=== PATIENT | female | born 1930 | race Caucasian/White ===

== ENCOUNTER 2017-08-06 15:04 | Inpatient (IN) | payer MEDICARE, OTHER ==
[~2017-08-06] VITALS: Ht 157.5 cm; Wt 82.0 kg
[~2017-08-06 15:04] MED LIST: ACET650T2 PO; ATEN-169 PO; ATOR20TA PO; FURO40TA4 PO; HYDR-3965 PO; LOSA50TA37 PO; MULT-1074 PO; PARO10TA PO; POTA10TA19 PO; VITA1TAB PO; VITC500T PO; WARF1TAB PO
[2017-08-06 15:47] LABS: BASOPHILS # (AUTO) 0.1 X10'3 (0-0.2); BASOPHILS % (AUTO) 0.7 % (0-1); EOSINOPHILS # (AUTO) 0.2 X10'3 (0-0.9); EOSINOPHILS % (AUTO) 1.1 % (0-6); HEMOGLOBIN 13.4 g/dl (12.0-16.0); LYMPHOCYTES # (AUTO) 1.4 X10'3 (1.1-4.8); LYMPHOCYTES % (AUTO) 8.9 % (21-51); MEAN CORPUSCULAR HEMOGLOBIN 30.8 PG (27.0-31.0); MEAN CORPUSCULAR HGB CONC 33.4 % (33.0-36.5); MEAN CORPUSCULAR VOLUME 92.3 FL (78-98); MEAN PLATELET VOLUME 7.3 FL (7.4-10.4); MONOCYTES # (AUTO) 1.3 X10'3 (0-0.9); MONOCYTES % (AUTO) 8.5 % (2-12); NEUTROPHILS # (AUTO) 12.6 X10'3 (1.8-7.7); NEUTROPHILS % (AUTO) 80.8 % (42-75); PLATELET COUNT 299 X10'3 (140-440); RED BLOOD COUNT 4.33 X10'6 (4.20-5.60); WHITE BLOOD COUNT 15.6 X10'3 (4.5-11.0)
[2017-08-06 15:57] LABS: INR 2.4 INR; PARTIAL THROMBOPLASTIN TIME 49 SECONDS (22-32)
[2017-08-06 16:02] LABS: ALANINE AMINOTRANSFERASE 24 U/L (12-78); ALBUMIN 3.8 G/DL (3.4-5.0); ALKALINE PHOSPHATASE 65 IU/L (46-116); ANION GAP 10 (8-16); ASPARTATE AMINO TRANSFERASE 24 U/L (10-37); BILIRUBIN,TOTAL 1.3 MG/DL (0.1-1.0); BLOOD UREA NITROGEN 17 MG/DL (7-18); BUN/CREATININE RATIO 13.4 (6.6-38.0); CALCIUM 9.8 MG/DL (8.5-10.1); CHLORIDE 99 MMOL/L (99-107); CREATININE 1.27 MG/DL (0.40-0.90); GLUCOSE 120 MG/DL (70-104); MAGNESIUM 1.8 MG/DL (1.5-2.4); SODIUM 138 MMOL/L (135-145); TOTAL CARBON DIOXIDE 29.5 MMOL/L (24-32); TOTAL PROTEIN 7.6 G/DL (6.4-8.2); eGFR 40 ML/MIN
[2017-08-06] MEDS ORDERED: piperacillin/tazo 3.375gm/50ml 50 ML IV ONE (16:25)
[2017-08-06] MEDS ORDERED: vancomycin/NS 1 GM ADD-VANTAGE 250 ML IV ONE (16:25)
[2017-08-06] MEDS ORDERED: LOSA100T3 PO (16:46)
[2017-08-06] MEDS ORDERED: HYDROcodone/acetaminophen 5mg/325mg tablet PO PRN (16:55)
[2017-08-06] MEDS ORDERED: acetaminophen 325mg tablet PO PRN ×2 (16:55)
[2017-08-06] MEDS ORDERED: magnesium Cl slow-release 64mg tablet PO PRN (16:55)
[2017-08-06] MEDS ORDERED: potassium Cl 20 mEq SR tablet PO PRN ×2 (16:55)
[2017-08-06] MEDS ORDERED: magnesium 4gm in 100ml NS 100 ML IV PRN (16:55)
[2017-08-06] MEDS ORDERED: magnesium hydroxide 30ml (MOM) UD suspension PO PRN (16:55)
[2017-08-06] MEDS ORDERED: mag hydrox/Alum hydrox/simeth 30ml oral suspension PO PRN (16:55)
[2017-08-06] MEDS ORDERED: potassium Cl 40MEQ/NS 500ml 500 ML IV PRN ×2 (16:55)
[2017-08-06] MEDS ORDERED: ondansetron/PF 4mg/2ml inj IV PRN (16:55)
[2017-08-06] MEDS ORDERED: magnesium 2GM in 50ml NS 50 ML IV PRN (16:55)
[2017-08-06] MEDS: HYDROcodone/acetaminophen 10/325mg tab PO PRN (17:15)
[2017-08-06 17:34] LABS: CLARITY,URINE CLEAR (Clear); COLOR,URINE YELLOW (Yellow); GLUCOSE, URINE NEGATIVE (Neg); KETONES,URINE TRACE mg/dl (Neg); LEUKOCYTE ESTERASE ,URINE TRACE (Neg); NITRITES, URINE NEGATIVE (Neg); OCCULT BLOOD,URINE NEGATIVE (Neg); PH,URINE 5.5 (4.8-8.0); PROTEIN,URINE NEGATIVE (Neg); UROBILINOGEN,URINE 0.2 E.U/dL (0.2-1.0)
[2017-08-06 17:39] LABS: UA COLLECTION TYPE CLN CATCH MIDSTREAM
[2017-08-06 17:44] LABS: BACTERIA,URINE 1+ /HPF (Neg); RBC,URINE NONE SEEN /HPF (0-2); SQUAMOUS EPITHELIAL CELL,UR MODERATE /LPF (FEW); WBC,URINE 0-4 /HPF (0-4)
[2017-08-06] MEDS: normal saline 1000ml 1,000 ML IV SCH (17:50)
[2017-08-06] MEDS: vancomycin inj 1,250 MG in normal saline 250ml IV soln 250 ML IV SCH (17:50)
[2017-08-06] MEDS ORDERED: COU1T PO (18:02)
[2017-08-06 19:20] VITALS: BP 142/68
[2017-08-06] MEDS ORDERED: heparin, porcine 5000 units/ml vial SQ SCH (20:00)
[2017-08-06] MEDS: docusate sod 100mg capsule PO SCH (20:35)
[2017-08-06] MEDS: warfarin 3mg tablet PO SCH (20:36)
[2017-08-06] MEDS: atorvastatin 20mg tablet PO SCH (20:36)
[2017-08-06] MEDS ORDERED: temazepam 15mg capsule PO PRN (21:00)
[2017-08-06] MEDS ORDERED: warfarin 1mg tablet PO SCH (21:00)
[2017-08-07] VITALS: BP 132/58
[2017-08-07 06:01] LABS: BASOPHILS % (AUTO) 0.2 % (0-1); EOSINOPHILS # (AUTO) 0.4 X10'3 (0-0.9); EOSINOPHILS % (AUTO) 2.6 % (0-6); HEMATOCRIT 34.3 % (35.0-45.0); HEMOGLOBIN 11.7 g/dl (12.0-16.0); LYMPHOCYTES # (AUTO) 1.3 X10'3 (1.1-4.8); LYMPHOCYTES % (AUTO) 9.2 % (21-51); MEAN CORPUSCULAR HEMOGLOBIN 31.1 PG (27.0-31.0); MEAN CORPUSCULAR HGB CONC 34.1 % (33.0-36.5); MEAN CORPUSCULAR VOLUME 91.2 FL (78-98); MEAN PLATELET VOLUME 7.3 FL (7.4-10.4); MONOCYTES # (AUTO) 1.6 X10'3 (0-0.9); MONOCYTES % (AUTO) 11.2 % (2-12); NEUTROPHILS # (AUTO) 11.1 X10'3 (1.8-7.7); NEUTROPHILS % (AUTO) 76.8 % (42-75); PLATELET COUNT 263 X10'3 (140-440); RED BLOOD COUNT 3.76 X10'6 (4.20-5.60); RED CELL DISTRIBUTION WIDTH 17.7 % (11.5-14.5); WHITE BLOOD COUNT 14.5 X10'3 (4.5-11.0)
[2017-08-07 06:07] LABS: INR 2.2 INR; PROTHROMBIN TIME 21.7 SECONDS (9.0-12.0)
[2017-08-07 06:35] LABS: ALANINE AMINOTRANSFERASE 21 U/L (12-78); ALBUMIN 3.1 G/DL (3.4-5.0); ALBUMIN/GLOBULIN RATIO 0.9 (1.1-1.5); ALKALINE PHOSPHATASE 56 IU/L (46-116); ANION GAP 8 (8-16); ASPARTATE AMINO TRANSFERASE 20 U/L (10-37); BLOOD UREA NITROGEN 15 MG/DL (7-18); BUN/CREATININE RATIO 10.9 (6.6-38.0); CALCIUM 9.1 MG/DL (8.5-10.1); CHLORIDE 103 MMOL/L (99-107); CREATININE 1.37 MG/DL (0.40-0.90); GLUCOSE 120 MG/DL (70-104); MAGNESIUM 1.8 MG/DL (1.5-2.4); POTASSIUM 4.4 MMOL/L (3.5-5.1); SODIUM 140 MMOL/L (135-145); TOTAL CARBON DIOXIDE 28.9 MMOL/L (24-32); TOTAL PROTEIN 6.5 G/DL (6.4-8.2); eGFR 37 ML/MIN
[2017-08-07 07:09] VITALS: BP 113/63
[2017-08-07] MEDS: K and/or MAG REPLACEMENT MC SCH (08:00)
[2017-08-07] MEDS ORDERED: warfarin 3mg tablet PO SCH (08:00)
[2017-08-07] MEDS: furosemide 40mg tablet PO SCH (08:00)
[2017-08-07] MEDS: potassium chloride 10mEq ER tablet PO SCH (08:00)
[2017-08-07] MEDS: docusate sod 100mg capsule PO SCH ×2 (08:36→21:19)
[2017-08-07] MEDS: pantoprazole 40mg Tablet.DR PO SCH (08:36)
[2017-08-07] MEDS: losartan 50mg tablet PO SCH (08:37)
[2017-08-07] MEDS: atenolol 50mg tablet PO SCH (08:39)
[2017-08-07] MEDS: PARoxetine 20mg tablet PO SCH (08:39)
[2017-08-07] MEDS: HYDROcodone/acetaminophen 10/325mg tab PO PRN (09:47)
[2017-08-07 11:25] VITALS: BP 96/56
[2017-08-07] MEDS: normal saline 1000ml 1,000 ML IV SCH (12:35)
[2017-08-07] MEDS: vancomycin inj 1,250 MG in normal saline 250ml IV soln 250 ML IV SCH (16:25)
[2017-08-07] MEDS: silver sulfadiazine cream 400gm jar TP SCH (16:25)
[2017-08-07] MEDS ORDERED: vancomycin/NS 1 GM ADD-VANTAGE 250 ML IV SCH (17:00)
[2017-08-07] MEDS: lactobacillus rhamnosus 10,000 MMU CELLS/CAPSULE PO SCH (17:47)
[2017-08-07 19:00] VITALS: BP 126/54
[2017-08-07] MEDS: warfarin 3mg tablet PO SCH (21:18)
[2017-08-07] MEDS: atorvastatin 20mg tablet PO SCH (21:19)
[2017-08-08] VITALS: BP 114/54
[2017-08-08 05:47] LABS: BASOPHILS % (AUTO) 0.3 % (0-1); EOSINOPHILS # (AUTO) 0.5 X10'3 (0-0.9); EOSINOPHILS % (AUTO) 4.3 % (0-6); HEMATOCRIT 32.4 % (35.0-45.0); HEMOGLOBIN 11.2 g/dl (12.0-16.0); LYMPHOCYTES # (AUTO) 1.7 X10'3 (1.1-4.8); LYMPHOCYTES % (AUTO) 14.5 % (21-51); MEAN CORPUSCULAR HEMOGLOBIN 31.3 PG (27.0-31.0); MEAN CORPUSCULAR HGB CONC 34.5 % (33.0-36.5); MEAN CORPUSCULAR VOLUME 90.7 FL (78-98); MEAN PLATELET VOLUME 7.3 FL (7.4-10.4); MONOCYTES # (AUTO) 1.3 X10'3 (0-0.9); MONOCYTES % (AUTO) 11.3 % (2-12); NEUTROPHILS % (AUTO) 69.6 % (42-75); PLATELET COUNT 256 X10'3 (140-440); RED BLOOD COUNT 3.58 X10'6 (4.20-5.60); RED CELL DISTRIBUTION WIDTH 17.5 % (11.5-14.5); WHITE BLOOD COUNT 11.6 X10'3 (4.5-11.0)
[2017-08-08 06:34] LABS: INR 2.2 INR; PROTHROMBIN TIME 22.5 SECONDS (9.0-12.0)
[2017-08-08 06:55] VITALS: BP 121/55
[2017-08-08 06:56] LABS: ALANINE AMINOTRANSFERASE 21 U/L (12-78); ALBUMIN/GLOBULIN RATIO 0.9 (1.1-1.5); ALKALINE PHOSPHATASE 65 IU/L (46-116); ANION GAP 11 (8-16); ASPARTATE AMINO TRANSFERASE 23 U/L (10-37); BILIRUBIN,TOTAL 0.7 MG/DL (0.1-1.0); BLOOD UREA NITROGEN 17 MG/DL (7-18); BUN/CREATININE RATIO 12.5 (6.6-38.0); CALCIUM 9.1 MG/DL (8.5-10.1); CHLORIDE 105 MMOL/L (99-107); CREATININE 1.36 MG/DL (0.40-0.90); GLUCOSE 104 MG/DL (70-104); MAGNESIUM 1.9 MG/DL (1.5-2.4); POTASSIUM 3.7 MMOL/L (3.5-5.1); SODIUM 140 MMOL/L (135-145); TOTAL CARBON DIOXIDE 23.7 MMOL/L (24-32); TOTAL PROTEIN 6.4 G/DL (6.4-8.2); eGFR 37 ML/MIN
[2017-08-08] MEDS: pantoprazole 40mg Tablet.DR PO SCH (07:55)
[2017-08-08] MEDS: lactobacillus rhamnosus 10,000 MMU CELLS/CAPSULE PO SCH ×2 (07:55→16:46)
[2017-08-08] MEDS: docusate sod 100mg capsule PO SCH ×2 (07:55→20:13)
[2017-08-08] MEDS: PARoxetine 20mg tablet PO SCH (07:56)
[2017-08-08] MEDS: potassium chloride 10mEq ER tablet PO SCH (07:56)
[2017-08-08] MEDS: losartan 50mg tablet PO SCH (07:56)
[2017-08-08] MEDS: furosemide 40mg tablet PO SCH (07:58)
[2017-08-08] MEDS: K and/or MAG REPLACEMENT MC SCH (08:00)
[2017-08-08] MEDS: silver sulfadiazine cream 400gm jar TP SCH (08:00)
[2017-08-08] MEDS: atenolol 50mg tablet PO SCH (08:00)
[2017-08-08] MEDS: normal saline 1000ml 1,000 ML IV SCH (08:07)
[2017-08-08 11:05] VITALS: BP 117/48
[2017-08-08] MEDS: vancomycin inj 1,250 MG in normal saline 250ml IV soln 250 ML IV SCH (16:46)
[2017-08-08 20:00] VITALS: BP 138/64
[2017-08-08 20:09] LABS: INR 2.2 INR
[2017-08-08] MEDS: warfarin 3mg tablet PO SCH (20:14)
[2017-08-08] MEDS: HYDROcodone/acetaminophen 10/325mg tab PO PRN (20:16)
[2017-08-08] MEDS: atorvastatin 20mg tablet PO SCH (20:16)
[2017-08-09] VITALS: BP 122/63
[2017-08-09] MEDS: normal saline 1000ml 1,000 ML IV SCH (05:07)
[2017-08-09 05:39] LABS: BASOPHILS % (AUTO) 0.4 % (0-1); EOSINOPHILS # (AUTO) 0.4 X10'3 (0-0.9); EOSINOPHILS % (AUTO) 5.3 % (0-6); HEMATOCRIT 30.9 % (35.0-45.0); HEMOGLOBIN 10.4 g/dl (12.0-16.0); LYMPHOCYTES # (AUTO) 1.1 X10'3 (1.1-4.8); LYMPHOCYTES % (AUTO) 14.5 % (21-51); MEAN CORPUSCULAR HGB CONC 33.8 % (33.0-36.5); MEAN CORPUSCULAR VOLUME 91.7 FL (78-98); MEAN PLATELET VOLUME 7.1 FL (7.4-10.4); MONOCYTES % (AUTO) 12.4 % (2-12); NEUTROPHILS # (AUTO) 5.3 X10'3 (1.8-7.7); NEUTROPHILS % (AUTO) 67.4 % (42-75); PLATELET COUNT 263 X10'3 (140-440); RED BLOOD COUNT 3.37 X10'6 (4.20-5.60); RED CELL DISTRIBUTION WIDTH 17.7 % (11.5-14.5); WHITE BLOOD COUNT 7.9 X10'3 (4.5-11.0)
[2017-08-09 05:46] LABS: INR 2.2 INR; PROTHROMBIN TIME 22.3 SECONDS (9.0-12.0)
[2017-08-09 05:53] LABS: ALANINE AMINOTRANSFERASE 23 U/L (12-78); ALBUMIN 2.7 G/DL (3.4-5.0); ALBUMIN/GLOBULIN RATIO 0.8 (1.1-1.5); ALKALINE PHOSPHATASE 56 IU/L (46-116); ANION GAP 8 (8-16); ASPARTATE AMINO TRANSFERASE 19 U/L (10-37); BILIRUBIN,TOTAL 0.5 MG/DL (0.1-1.0); BLOOD UREA NITROGEN 14 MG/DL (7-18); BUN/CREATININE RATIO 13.2 (6.6-38.0); CALCIUM 8.9 MG/DL (8.5-10.1); CHLORIDE 106 MMOL/L (99-107); CREATININE 1.06 MG/DL (0.40-0.90); GLUCOSE 105 MG/DL (70-104); POTASSIUM 3.9 MMOL/L (3.5-5.1); SODIUM 141 MMOL/L (135-145); TOTAL CARBON DIOXIDE 27.1 MMOL/L (24-32); eGFR 49 ML/MIN
[2017-08-09 06:50] VITALS: BP 133/58
[2017-08-09] MEDS: potassium chloride 10mEq ER tablet PO SCH (07:57)
[2017-08-09] MEDS: PARoxetine 20mg tablet PO SCH (07:57)
[2017-08-09] MEDS: lactobacillus rhamnosus 10,000 MMU CELLS/CAPSULE PO SCH ×2 (07:57→17:40)
[2017-08-09] MEDS: pantoprazole 40mg Tablet.DR PO SCH (07:57)
[2017-08-09] MEDS: losartan 50mg tablet PO SCH (07:57)
[2017-08-09] MEDS: K and/or MAG REPLACEMENT MC SCH (07:58)
[2017-08-09] MEDS: docusate sod 100mg capsule PO SCH ×2 (07:58→20:17)
[2017-08-09] MEDS: furosemide 40mg tablet PO SCH (07:58)
[2017-08-09] MEDS: silver sulfadiazine cream 400gm jar TP SCH (07:59)
[2017-08-09] MEDS: atenolol 50mg tablet PO SCH (07:59)
[2017-08-09 10:55] VITALS: BP 124/64
[2017-08-09] MEDS ORDERED: VANCOMYCIN LEVEL IV NR (16:30)
[2017-08-09] MEDS: vancomycin inj 1,250 MG in normal saline 250ml IV soln 250 ML IV SCH (17:43)
[2017-08-09 18:40] VITALS: BP 165/78
[2017-08-09] MEDS: atorvastatin 20mg tablet PO SCH (20:17)
[2017-08-09] MEDS: warfarin 3mg tablet PO SCH (20:18)
[2017-08-10] VITALS: BP 163/53
[2017-08-10] MEDS: normal saline 1000ml 1,000 ML IV SCH (04:21)
[2017-08-10] MEDS: HYDROcodone/acetaminophen 10/325mg tab PO PRN (04:58)
[2017-08-10 05:24] LABS: BASOPHILS % (AUTO) 0.4 % (0-1); EOSINOPHILS # (AUTO) 0.3 X10'3 (0-0.9); HEMATOCRIT 30.9 % (35.0-45.0); HEMOGLOBIN 10.6 g/dl (12.0-16.0); LYMPHOCYTES % (AUTO) 9.3 % (21-51); MEAN CORPUSCULAR HEMOGLOBIN 30.9 PG (27.0-31.0); MEAN CORPUSCULAR HGB CONC 34.1 % (33.0-36.5); MEAN CORPUSCULAR VOLUME 90.6 FL (78-98); MONOCYTES # (AUTO) 1.1 X10'3 (0-0.9); NEUTROPHILS # (AUTO) 8.4 X10'3 (1.8-7.7); NEUTROPHILS % (AUTO) 77.3 % (42-75); PLATELET COUNT 317 X10'3 (140-440); RED BLOOD COUNT 3.41 X10'6 (4.20-5.60); RED CELL DISTRIBUTION WIDTH 17.5 % (11.5-14.5); WHITE BLOOD COUNT 10.8 X10'3 (4.5-11.0)
[2017-08-10 05:32] LABS: INR 2.3 INR; PROTHROMBIN TIME 23.5 SECONDS (9.0-12.0)
[2017-08-10 06:00] LABS: ALANINE AMINOTRANSFERASE 16 U/L (12-78); ALBUMIN 2.8 G/DL (3.4-5.0); ALBUMIN/GLOBULIN RATIO 0.8 (1.1-1.5); ALKALINE PHOSPHATASE 59 IU/L (46-116); ANION GAP 10 (8-16); ASPARTATE AMINO TRANSFERASE 19 U/L (10-37); BILIRUBIN,TOTAL 0.6 MG/DL (0.1-1.0); BLOOD UREA NITROGEN 12 MG/DL (7-18); BUN/CREATININE RATIO 11.4 (6.6-38.0); CALCIUM 8.9 MG/DL (8.5-10.1); CHLORIDE 105 MMOL/L (99-107); CREATININE 1.05 MG/DL (0.40-0.90); GLUCOSE 118 MG/DL (70-104); MAGNESIUM 1.9 MG/DL (1.5-2.4); POTASSIUM 3.9 MMOL/L (3.5-5.1); SODIUM 140 MMOL/L (135-145); TOTAL CARBON DIOXIDE 25.5 MMOL/L (24-32); TOTAL PROTEIN 6.3 G/DL (6.4-8.2); eGFR 50 ML/MIN
[2017-08-10 07:47] VITALS: BP 120/68
[2017-08-10] MEDS: docusate sod 100mg capsule PO SCH (07:51)
[2017-08-10] MEDS: pantoprazole 40mg Tablet.DR PO SCH (07:51)
[2017-08-10] MEDS: lactobacillus rhamnosus 10,000 MMU CELLS/CAPSULE PO SCH (07:51)
[2017-08-10] MEDS: PARoxetine 20mg tablet PO SCH (07:52)
[2017-08-10] MEDS: losartan 50mg tablet PO SCH (07:52)
[2017-08-10] MEDS: atenolol 50mg tablet PO SCH (07:53)
[2017-08-10] MEDS: potassium chloride 10mEq ER tablet PO SCH (07:57)
[2017-08-10] MEDS: furosemide 40mg tablet PO SCH (07:58)
[2017-08-10] MEDS: silver sulfadiazine cream 400gm jar TP SCH (08:00)
[2017-08-10] MEDS: K and/or MAG REPLACEMENT MC SCH (08:00)
[2017-08-10 12:00] VITALS: BP 106/56
[2017-08-10] MEDS ORDERED: vancomycin 1500mg/300ml PREMIX 250 ML IV SCH (17:00)
[2017-08-13] MEDS ORDERED: VANCOMYCIN LEVEL IV NR (16:30)
== END 2017-08-10 15:55 | DRG 603 ==
LOC: ER 15:04 → ED HOLD 16:48 → OBSVTOIN 16:55 → MED 3N 19:20
PROVIDERS: ADMIT Internal Medicine; ATTEND Family Medicine
DX: L03.115 Cellulitis of right lower limb (principal); I48.91 Unspecified atrial fibrillation; N18.3 Chronic kidney disease, stage 3 (moderate); L02.415 Cutaneous abscess of right lower limb; Z60.2 Problems related to living alone; I12.9 Hypertensive chronic kidney disease with stage 1 through stage 4 chronic kidney disease, or unspecified chronic kidney disease; I25.10 Atherosclerotic heart disease of native coronary artery without angina pectoris; L30.9 Dermatitis, unspecified; H91.92 Unspecified hearing loss, left ear; G89.29 Other chronic pain; M17.11 Unilateral primary osteoarthritis, right knee; Z66 Do not resuscitate; Z95.1 Presence of aortocoronary bypass graft; Z79.899 Other long term (current) drug therapy; Z79.01 Long term (current) use of anticoagulants; Z85.828 Personal history of other malignant neoplasm of skin; Z86.73 Personal history of transient ischemic attack (TIA), and cerebral infarction without residual deficits
CPT/HCPCS: 36415; 80053; 80202; 81001; 83605; 83735; 84145; 85025; 85610; 85730; 87040; 87070; 87088; 97110; 97116; 97161; 97530; 99285; A4649; A6212; A6213; A6223; A6253; A6449; G0378; J2543; J3370; J7030

== ENCOUNTER 2017-12-05 21:30 | Emergency (ER) | payer MEDICARE, OTHER ==
[~2017-12-05] VITALS: Ht 165.1 cm; Wt 80.0 kg
[~2017-12-05 21:30] MED LIST changes: -ACET650T2 PO; -ATEN-169 PO; +ATEN100T PO; +CHOL10002 PO; +COU1T PO; +FURO-149 PO; -FURO40TA4 PO; +LOSA100T3 PO; -LOSA50TA37 PO; +POTA10CA44 PO; -POTA10TA19 PO; +SENN-93 PO; +VITA150T PO; -VITA1TAB PO; -WARF1TAB PO
[2017-12-05 22:38] LABS: BASOPHILS % (AUTO) 0.4 % (0-1); EOSINOPHILS # (AUTO) 0.8 X10'3 (0-0.9); HEMATOCRIT 31.9 % (35.0-45.0); HEMOGLOBIN 10.7 g/dl (12.0-16.0); LYMPHOCYTES # (AUTO) 1.8 X10'3 (1.1-4.8); LYMPHOCYTES % (AUTO) 14.7 % (21-51); MEAN CORPUSCULAR HEMOGLOBIN 28.8 PG (27.0-31.0); MEAN CORPUSCULAR HGB CONC 33.4 % (33.0-36.5); MEAN CORPUSCULAR VOLUME 86.3 FL (78-98); MEAN PLATELET VOLUME 6.9 FL (7.4-10.4); MONOCYTES # (AUTO) 1.1 X10'3 (0-0.9); MONOCYTES % (AUTO) 9.2 % (2-12); NEUTROPHILS # (AUTO) 8.2 X10'3 (1.8-7.7); NEUTROPHILS % (AUTO) 68.7 % (42-75); PLATELET COUNT 404 X10'3 (140-440); RED CELL DISTRIBUTION WIDTH 17.8 % (11.5-14.5); WHITE BLOOD COUNT 11.9 X10'3 (4.5-11.0)
[2017-12-05 22:46] LABS: ALANINE AMINOTRANSFERASE 27 U/L (12-78); ALBUMIN 2.5 G/DL (3.4-5.0); ALBUMIN/GLOBULIN RATIO 0.6 (1.1-1.5); ALKALINE PHOSPHATASE 144 IU/L (46-116); ANION GAP 6 (8-16); ASPARTATE AMINO TRANSFERASE 37 U/L (10-37); BILIRUBIN,TOTAL 0.4 MG/DL (0.1-1.0); BLOOD UREA NITROGEN 29 MG/DL (7-18); BUN/CREATININE RATIO 24.4 (6.6-38.0); CALCIUM 9.1 MG/DL (8.5-10.1); CHLORIDE 103 MMOL/L (99-107); CREATININE 1.19 MG/DL (0.40-0.90); GLUCOSE 117 MG/DL (70-104); MAGNESIUM 2.3 MG/DL (1.5-2.4); POTASSIUM 4.3 MMOL/L (3.5-5.1); SODIUM 136 MMOL/L (135-145); TOTAL PROTEIN 6.7 G/DL (6.4-8.2); eGFR 43 ML/MIN
[2017-12-05 22:49] VITALS: BP 96/46
[2017-12-05 22:50] LABS: PROTHROMBIN TIME 40.2 SECONDS (9.0-12.0)
[2017-12-05 22:52] LABS: CLARITY,URINE CLEAR (Clear); COLOR,URINE YELLOW (Yellow); GLUCOSE, URINE NEGATIVE (Neg); KETONES,URINE NEGATIVE (Neg); LEUKOCYTE ESTERASE ,URINE NEGATIVE (Neg); NITRITES, URINE NEGATIVE (Neg); OCCULT BLOOD,URINE NEGATIVE (Neg); PROTEIN,URINE NEGATIVE (Neg); UROBILINOGEN,URINE 0.2 E.U/dL (0.2-1.0)
[2017-12-05 22:53] LABS: UA COLLECTION TYPE STRAIGHT CATH
[2017-12-05 22:54] LABS: INR 4.1 INR
[2017-12-05] MEDS ORDERED: normal saline 1000ML IV soln IVB ONE (23:00)
[2017-12-05] MEDS ORDERED: HYDROcodone/acetaminophen 10/325mg tab PO ONE (23:05)
== END 2017-12-06 00:32 | disposition home or self-care (01) ==
LOC: ER 21:30
DX: S09.90XA Unspecified injury of head, initial encounter (principal); I25.10 Atherosclerotic heart disease of native coronary artery without angina pectoris; I10 Essential (primary) hypertension; G89.29 Other chronic pain; G45.9 Transient cerebral ischemic attack, unspecified; Z98.890 Other specified postprocedural states; Z60.2 Problems related to living alone; W18.30XA Fall on same level, unspecified, initial encounter; Y93.89 Activity, other specified; Y92.89 Other specified places as the place of occurrence of the external cause; Y99.8 Other external cause status
CPT/HCPCS: 36415; 70450; 72125; 80053; 81003; 83735; 85025; 85610; 99285

== ENCOUNTER 2018-10-11 12:22 | Emergency (ER) | payer MEDICARE, OTHER ==
[~2018-10-11] VITALS: Ht 154.9 cm; Wt 80.7 kg
[~2018-10-11 12:22] MED LIST changes: +DICL100G15 TOP; +FERR325T28 PO
--- NOTE | 2018-10-11 12:38 | NUR ---
DAUGHTER ELIA VIJAY [phone]
--- NOTE | 2018-10-11 12:39 | NUR ---
DAUGHTER AT BEDSIDE
--- NOTE | 2018-10-11 12:40 | NUR ---
ICE PACK TO RIGHT FOREHEAD
[2018-10-11 13:02] LABS: BASOPHILS % (AUTO) 0.5 % (0-1); EOSINOPHILS # (AUTO) 0.1 X10'3 (0-0.9); EOSINOPHILS % (AUTO) 2.4 % (0-6); HEMATOCRIT 44.9 % (35.0-45.0); HEMOGLOBIN 14.7 g/dl (12.0-16.0); LYMPHOCYTES # (AUTO) 1.6 X10'3 (1.1-4.8); MEAN CORPUSCULAR HEMOGLOBIN 30.7 PG (27.0-31.0); MEAN CORPUSCULAR HGB CONC 32.8 g/dL (33.0-36.5); MEAN CORPUSCULAR VOLUME 93.7 FL (78-98); MEAN PLATELET VOLUME 7.9 FL (7.4-10.4); MONOCYTES # (AUTO) 0.7 X10'3 (0-0.9); MONOCYTES % (AUTO) 10.8 % (2-12); NEUTROPHILS # (AUTO) 3.9 X10'3 (1.8-7.7); NEUTROPHILS % (AUTO) 61.3 % (42-75); PLATELET COUNT 255 X10'3 (140-440); WHITE BLOOD COUNT 6.3 X10'3 (4.5-11.0)
[2018-10-11 13:10] LABS: ALANINE AMINOTRANSFERASE 25 U/L (12-78); ALBUMIN/GLOBULIN RATIO 1.1 (1.1-1.5); ALKALINE PHOSPHATASE 67 IU/L (46-116); ANION GAP 8 (8-16); ASPARTATE AMINO TRANSFERASE 30 U/L (10-37); BILIRUBIN,TOTAL 0.8 MG/DL (0.1-1.0); BLOOD UREA NITROGEN 18 MG/DL (7-18); BUN/CREATININE RATIO 13.4 (6.6-38.0); CALCIUM 10.6 MG/DL (8.5-10.1); CHLORIDE 104 MMOL/L (99-107); CREATININE 1.34 MG/DL (0.40-0.90); GLUCOSE 93 MG/DL (70-104); POTASSIUM 4.3 MMOL/L (3.5-5.1); SODIUM 142 MMOL/L (135-145); TOTAL CARBON DIOXIDE 30.2 MMOL/L (24-32); TOTAL PROTEIN 7.7 G/DL (6.4-8.2); eGFR 38 ML/MIN
[2018-10-11 13:13] LABS: MAGNESIUM 2.1 MG/DL (1.5-2.4); TROPONIN I < 0.04 NG/ML (0.0-0.05)
[2018-10-11 14:05] LABS: INR 2.9 INR; PARTIAL THROMBOPLASTIN TIME 43 SECONDS (22-32); PROTHROMBIN TIME 27.9 SECONDS (9.0-12.0)
[2018-10-11 14:42] VITALS: BP 158/63
== END 2018-10-11 14:46 | disposition home or self-care (01) ==
LOC: ER 12:22
DX: S00.83XA Contusion of other part of head, initial encounter (principal); I25.10 Atherosclerotic heart disease of native coronary artery without angina pectoris; Z86.73 Personal history of transient ischemic attack (TIA), and cerebral infarction without residual deficits; I10 Essential (primary) hypertension; G89.29 Other chronic pain; Z98.890 Other specified postprocedural states; Z79.01 Long term (current) use of anticoagulants; Z79.899 Other long term (current) drug therapy; Z60.2 Problems related to living alone; W01.190A Fall on same level from slipping, tripping and stumbling with subsequent striking against furniture, initial encounter; Y93.89 Activity, other specified; Y92.89 Other specified places as the place of occurrence of the external cause; Y99.8 Other external cause status
CPT/HCPCS: 36415; 70450; 71045; 80053; 82948; 83735; 84484; 85025; 85610; 85730; 93005; 99284

== ENCOUNTER 2019-01-29 18:43 | Emergency (ER) | payer MEDICARE, OTHER ==
[~2019-01-29] VITALS: Ht 160 cm; Wt 72.7 kg
--- NOTE | 2019-01-29 18:55 | NUR ---
Patricia daughters phone number is [phone]
[2019-01-29] MEDS ORDERED: FURO-150 PO (19:12)
[2019-01-29] MEDS ORDERED: LEVO25TA7 PO (19:12)
[2019-01-29] MEDS ORDERED: COU1T PO (19:12)
[2019-01-29] MEDS ORDERED: calcium citrate PO (19:12)
[2019-01-29] MEDS ORDERED: MULT-16 PO (19:12)
--- NOTE | 2019-01-29 19:14 | NUR ---
Patricia says she is a DNR may do chemical States broken 10th rib
[2019-01-29 19:25] LABS: BASOPHILS # (AUTO) 0.1 X10'3 (0-0.2); BASOPHILS % (AUTO) 0.7 % (0-1); EOSINOPHILS # (AUTO) 0.3 X10'3 (0-0.9); EOSINOPHILS % (AUTO) 3.2 % (0-6); HEMATOCRIT 43.3 % (35.0-45.0); HEMOGLOBIN 14.4 g/dl (12.0-16.0); LYMPHOCYTES # (AUTO) 2.5 X10'3 (1.1-4.8); LYMPHOCYTES % (AUTO) 26.2 % (21-51); MEAN CORPUSCULAR HGB CONC 33.3 g/dL (33.0-36.5); MEAN CORPUSCULAR VOLUME 93.1 FL (78-98); MEAN PLATELET VOLUME 7.6 FL (7.4-10.4); MONOCYTES # (AUTO) 1.1 X10'3 (0-0.9); MONOCYTES % (AUTO) 11.6 % (2-12); NEUTROPHILS # (AUTO) 5.5 X10'3 (1.8-7.7); NEUTROPHILS % (AUTO) 58.3 % (42-75); PLATELET COUNT 234 X10'3 (140-440); RED BLOOD COUNT 4.66 X10'6 (4.20-5.60); WHITE BLOOD COUNT 9.4 X10'3 (4.5-11.0)
[2019-01-29 19:56] LABS: ALANINE AMINOTRANSFERASE 27 U/L (12-78); ALBUMIN 3.9 G/DL (3.4-5.0); ALBUMIN/GLOBULIN RATIO 1.1 (1.1-1.5); ALKALINE PHOSPHATASE 53 IU/L (46-116); ANION GAP 8 (8-16); ASPARTATE AMINO TRANSFERASE 27 U/L (10-37); BILIRUBIN,TOTAL 0.9 MG/DL (0.1-1.0); BLOOD UREA NITROGEN 21 MG/DL (7-18); BUN/CREATININE RATIO 14.8 (6.6-38.0); CHLORIDE 105 MMOL/L (99-107); CREATININE 1.42 MG/DL (0.40-0.90); GLUCOSE 98 MG/DL (70-104); MAGNESIUM 2.2 MG/DL (1.5-2.4); POTASSIUM 4.3 MMOL/L (3.5-5.1); SODIUM 141 MMOL/L (135-145); TOTAL CARBON DIOXIDE 27.6 MMOL/L (24-32); TOTAL PROTEIN 7.4 G/DL (6.4-8.2); eGFR 35 ML/MIN
[2019-01-29 20:03] LABS: CLARITY,URINE CLEAR (Clear); COLOR,URINE YELLOW (Yellow); GLUCOSE, URINE NEGATIVE (Neg); KETONES,URINE NEGATIVE (Neg); LEUKOCYTE ESTERASE ,URINE NEGATIVE (Neg); NITRITES, URINE NEGATIVE (Neg); OCCULT BLOOD,URINE NEGATIVE (Neg); PH,URINE 5.5 (4.8-8.0); PROTEIN,URINE NEGATIVE (Neg); UROBILINOGEN,URINE 0.2 E.U/dL (0.2-1.0)
[2019-01-29] MEDS ORDERED: normal saline 1000ML IV soln IVB ONE (20:10)
[2019-01-29 20:13] LABS: UA COLLECTION TYPE STRAIGHT CATH
--- NOTE | 2019-01-29 20:58 | NUR ---
patient used incentive spirometer to 1000 ten times
--- NOTE | 2019-01-29 21:03 | NUR ---
spoke to daughter roverto on phone Dr Ward will include information on her INR on her discharge paperwork
--- NOTE | 2019-01-29 21:09 | NUR ---
SPOKE TO ARMANDO Kerecis JEFFY AT [facility] [phone]; DISCUSSSED ELEVATED INR OF 4.2 AND THAT COUMADIN SHOULD BE HELD UNTIL THURSDAY AND PATIENT NEEDS TO HAVE INR RECHECKED BY COUMADIN CLINIC, AND PATIENT NEEDS TO USE INCENTIVE SPIROMETER TEN TIMES DAILY
[2019-01-29 21:14] VITALS: BP 164/94
== END 2019-01-29 21:23 | disposition home or self-care (01) ==
LOC: ER 18:43
DX: S80.01XA Contusion of right knee, initial encounter (principal); D68.9 Coagulation defect, unspecified; R50.9 Fever, unspecified; I25.10 Atherosclerotic heart disease of native coronary artery without angina pectoris; I10 Essential (primary) hypertension; G89.29 Other chronic pain; Z86.73 Personal history of transient ischemic attack (TIA), and cerebral infarction without residual deficits; Z95.1 Presence of aortocoronary bypass graft; Z98.890 Other specified postprocedural states; Z60.2 Problems related to living alone; Z79.01 Long term (current) use of anticoagulants; Z79.899 Other long term (current) drug therapy; W18.39XA Other fall on same level, initial encounter; Y93.89 Activity, other specified; Y92.89 Other specified places as the place of occurrence of the external cause; Y99.8 Other external cause status
CPT/HCPCS: 36415; 71045; 73560; 80053; 81003; 83605; 83735; 84145; 85025; 85610; 87040; 99284; J7030; P9612; 93005

== ENCOUNTER 2019-06-11 23:17 | Emergency (ER) | payer MEDICARE, OTHER ==
[~2019-06-11] VITALS: Ht 167.6 cm; Wt 77.3 kg
[~2019-06-11 23:17] MED LIST changes: -FURO-149 PO; +FURO-150 PO; +LEVO25TA7 PO; -MULT-1074 PO; +MULT-16 PO; +calcium citrate PO
[2019-06-12] MEDS ORDERED: acetaminophen 325mg tablet PO ONE (00:40)
[2019-06-12] MEDS ORDERED: HYDR-4383 PO (04:38)
[2019-06-12] MEDS ORDERED: HYDROcodone/acetaminophen 5mg/325mg tablet PO ONE (04:40)
[2019-06-12 04:45] VITALS: BP 133/86
--- NOTE | 2019-06-12 04:47 | NUR ---
i spoke with pts daughter , hitesh, who called for update. she reprots pt has been taking norco for the hip pain and that her perscription ran out tody at the facility and the staff were going to call to get it refilled. she requested a dose of norco prior to dc, dr. jack wrote this order. . pt with episode of urine incontinence. stable vs.
[2019-06-12] MEDS ORDERED: NYST1POW5 TOP (15:27)
== END 2019-06-12 05:59 | disposition home or self-care (01) ==
LOC: ER 23:18
DX: M25.552 Pain in left hip (principal); G89.29 Other chronic pain; I25.10 Atherosclerotic heart disease of native coronary artery without angina pectoris; I10 Essential (primary) hypertension; Z86.73 Personal history of transient ischemic attack (TIA), and cerebral infarction without residual deficits; Z95.1 Presence of aortocoronary bypass graft; Z98.890 Other specified postprocedural states; Z79.01 Long term (current) use of anticoagulants; Z79.899 Other long term (current) drug therapy
CPT/HCPCS: 73502; 99284

== ENCOUNTER 2019-06-12 11:17 | Inpatient (IN) | payer MEDICARE, OTHER ==
[~2019-06-12] VITALS: Ht 154.9 cm; Wt 86.4 kg
[~2019-06-12 11:17] MED LIST changes: +HYDR-4383 PO
[2019-06-12 14:04] LABS: BASOPHILS # (AUTO) 0.1 X10'3 (0-0.2); BASOPHILS % (AUTO) 0.6 % (0-1); EOSINOPHILS # (AUTO) 0.2 X10'3 (0-0.9); HEMATOCRIT 41.8 % (35.0-45.0); WHITE BLOOD COUNT 9.5 X10'3 (4.5-11.0)
[2019-06-12 14:06] LABS: EOSINOPHILS % (AUTO) 2.5 % (0-6); LYMPHOCYTES # (AUTO) 2.2 X10'3 (1.1-4.8); MEAN CORPUSCULAR HGB CONC 33.5 g/dL (33.0-36.5); MEAN CORPUSCULAR VOLUME 92.6 FL (78-98); MEAN PLATELET VOLUME 7.7 FL (7.4-10.4); MONOCYTES # (AUTO) 1.1 X10'3 (0-0.9); MONOCYTES % (AUTO) 11.3 % (2-12); NEUTROPHILS # (AUTO) 5.9 X10'3 (1.8-7.7); NEUTROPHILS % (AUTO) 62.6 % (42-75); PLATELET COUNT 263 X10'3 (140-440); RED BLOOD COUNT 4.52 X10'6 (4.20-5.60); RED CELL DISTRIBUTION WIDTH 17.1 % (11.5-14.5)
[2019-06-12 14:20] LABS: ALANINE AMINOTRANSFERASE 30 U/L (12-78); ALBUMIN/GLOBULIN RATIO 1.1 (1.1-1.5); ALKALINE PHOSPHATASE 72 IU/L (46-116); ANION GAP 3 (8-16); ASPARTATE AMINO TRANSFERASE 33 U/L (10-37); BLOOD UREA NITROGEN 15 MG/DL (7-18); BUN/CREATININE RATIO 11.9 (6.6-38.0); CALCIUM 10.2 MG/DL (8.5-10.1); CHLORIDE 103 MMOL/L (99-107); CREATININE 1.26 MG/DL (0.40-0.90); GLUCOSE 92 MG/DL (70-104); POTASSIUM 3.9 MMOL/L (3.5-5.1); SODIUM 138 MMOL/L (135-145); TOTAL CARBON DIOXIDE 31.7 MMOL/L (24-32); TOTAL PROTEIN 7.5 G/DL (6.4-8.2); eGFR 40 ML/MIN
--- NOTE | 2019-06-12 14:22 | NUR ---
PATIENT AMBULATED ABOUT 3 STEPS FORWARD AND 3 STEPS BACKWARD WITH 2 PERSON MAX ASSIST PATIENT HAD MINIMALLLY PAIN ONCE UP AND COACHED TO AMBULATE SITTING INCREASED LEFT HIP, LEFT LOW BACK AND LEFT LATERAL THIGH PAIN: WINCING FACE
[2019-06-12] MEDS ORDERED: NYST1POW5 TOP (15:27)
[2019-06-12] MEDS ORDERED: HYDROmorphone inj. 0.5 MG/0.5 ML DISP.SYRIN IV PRN (15:30)
[2019-06-12] MEDS ORDERED: potassium chloride 10mEq ER tablet PO PRN (16:00)
[2019-06-12] MEDS ORDERED: HYDROcodone/acetaminophen 5mg/325mg tablet PO PRN (16:00)
[2019-06-12] MEDS ORDERED: sennosides/docusate sodium tablet PO PRN (16:00)
[2019-06-12] MEDS: levoTHYROXINE 25mcg tablet PO SCH (16:40)
--- NOTE | 2019-06-12 17:09 | NUR ---
PHOTOS TAKEN OF BILATERAL BUTTOCKS WOUNDS: CHRONIC PER DAUGHTER ELIA AND RIGHT SKIN FOLD AND PLACED INTO CHART
--- NOTE | 2019-06-12 17:15 | NUR ---
BARRIER CREAM TO BOTH BUTTOCK AND COVERED BY OPTIFOAM BILATERALLY, BARRIER CREAM TO REDDENED RIGHT SKIN FOLD
--- NOTE | 2019-06-12 17:45 | NUR ---
PATIENT ARRIVED TO THE FLOOR DAUGHTER AT BEDSIDE. C/O MILD PAIN. A&O. IN NO APPARENT DISTRESS.
[2019-06-12 18:00] VITALS: BP 149/91
--- NOTE | 2019-06-12 18:25 | NUR ---
Problems reprioritized. Patient report given, questions answered & plan of care reviewed with JORDAN Jakcson.
[2019-06-12] MEDS ORDERED: warfarin 3mg tablet PO SCH (21:00)
[2019-06-12] MEDS: ferrous sulfate 325mg tablet PO SCH (21:39)
[2019-06-12 22:00] VITALS: BP 179/104
[2019-06-13 06:00] VITALS: BP 164/86
--- NOTE | 2019-06-13 06:54 | NUR ---
Patient in room ORTHO 4016. I have received report from JUAN RN and had the opportunity to ask questions and assume patient care.
[2019-06-13 07:25] LABS: BASOPHILS # (AUTO) 0.1 X10'3 (0-0.2); HEMOGLOBIN 15.1 g/dl (12.0-16.0); LYMPHOCYTES # (AUTO) 1.6 X10'3 (1.1-4.8); MEAN CORPUSCULAR HEMOGLOBIN 31.4 PG (27.0-31.0); MEAN CORPUSCULAR HGB CONC 33.6 g/dL (33.0-36.5); MEAN CORPUSCULAR VOLUME 93.5 FL (78-98); PLATELET COUNT 247 X10'3 (140-440)
[2019-06-13 07:27] LABS: BASOPHILS % (AUTO) 0.9 % (0-1); EOSINOPHILS # (AUTO) 0.1 X10'3 (0-0.9); EOSINOPHILS % (AUTO) 1.2 % (0-6); LYMPHOCYTES % (AUTO) 13.3 % (21-51); MEAN PLATELET VOLUME 8.1 FL (7.4-10.4); MONOCYTES # (AUTO) 1.1 X10'3 (0-0.9); MONOCYTES % (AUTO) 9.2 % (2-12); NEUTROPHILS # (AUTO) 9.1 X10'3 (1.8-7.7); NEUTROPHILS % (AUTO) 75.4 % (42-75); RED BLOOD COUNT 4.82 X10'6 (4.20-5.60); RED CELL DISTRIBUTION WIDTH 16.8 % (11.5-14.5); WHITE BLOOD COUNT 12.1 X10'3 (4.5-11.0)
[2019-06-13 07:36] LABS: ALBUMIN 4.1 G/DL (3.4-5.0); ANION GAP 9 (8-16); BLOOD UREA NITROGEN 13 MG/DL (7-18); BUN/CREATININE RATIO 11.4 (6.6-38.0); CALCIUM 10.3 MG/DL (8.5-10.1); CHLORIDE 102 MMOL/L (99-107); CREATININE 1.14 MG/DL (0.40-0.90); GLUCOSE 113 MG/DL (70-104); POTASSIUM 3.9 MMOL/L (3.5-5.1); SODIUM 138 MMOL/L (135-145); eGFR 45 ML/MIN
--- NOTE | 2019-06-13 08:01 | NUR ---
PAGER ID: [phone] MESSAGE: DANIEL [id number]-RE:KATARZYNA VANESSA [id number]..CRITICAL LAB INR 4.O PHARMACY TO DOSE
[2019-06-13] MEDS: losartan 25mg tablet PO SCH (08:55)
[2019-06-13] MEDS: furosemide 20MG tablet PO SCH (08:56)
[2019-06-13] MEDS: ferrous sulfate 325mg tablet PO SCH ×2 (08:56→19:28)
[2019-06-13] MEDS: calcium acetate 667mg (PhosLO) capsule PO SCH (08:59)
[2019-06-13] MEDS: levoTHYROXINE 25mcg tablet PO SCH (08:59)
[2019-06-13] MEDS: vitamin B comp w/Vit. C tab 1 TAB TABLET PO SCH (08:59)
[2019-06-13] MEDS: vitamin D (cholecalciferol) 1,000 unit tablet PO SCH (09:00)
[2019-06-13] MEDS: atenolol 50mg tablet PO SCH (09:00)
[2019-06-13] MEDS: PARoxetine 20mg tablet PO SCH (09:01)
--- NOTE | 2019-06-13 09:26 | NUR ---
PAGED DR MANUEL ABOUT MRI VS BONE SCAN PER BERT
[2019-06-13 10:00] VITALS: BP 144/95
--- NOTE | 2019-06-13 12:23 | NUR ---
PRESSURE ULCER EDUCATION: DEFINITION: A pressure ulcer is an area of skin that breaks down when you stay in one position too long. The constant pressure against the skin reduces the blood flow to that area and the affected tissue dies. CAUSES: "Being bedridden or in a wheelchair "Fragile skin "Having a chronic condition, such as diabetes or vascular disease "Inability to move certain parts of your body without assistance "Older age "Incontinence of urine or stool SYMPTOMS: "A reddened area that DOES NOT turn white when pressed on - this can be the beginning of a pressure ulcer "A blister, deep sore or a crater - these can be advanced pressure ulcers FIRST AID: "Relieve the pressure on this area "Keep the area clean and dry "Call your primary doctor if you see any of the above symptoms "DO NOT massage the area "DO NOT use a donut shaped or ring shaped pillow- these actually interfere with the blood flow and cause complications PREVENTION: "Check for pressure ulcers everyday "Change position at least every two hours to relieve pressure "Use items that help relieve pressure- pillows, sheepskin, foam padding, and powders. "Keep skin clean and dry "Eat healthy well balanced meals "Exercise daily IF YOU SEE ANY OF THESE SYMPTOMS WHILE IN THE HOSPITAL - TELL YOUR NURSE IMMEDIATELY. IF YOU SEE ANY OF THESE SYMPTOMS WHILE AT HOME OR HAVE ANY QUESTIONS OR CONCERNS ABOUT PRESSURE ULCERS - CALL YOUR PRIMARY DOCTOR IMMEDIATELY. Addendum: 06/13/19 at 1223 by Chelsea Chapin RN Amended: Links added.
--- NOTE | 2019-06-13 13:01 | NUR ---
PAGER ID: [phone] MESSAGE: DANIEL [id number]-RE: KATARZYNA VANESSA RM [id number]...PT PASSED BEDSIDE SWALLOW TEST, ABLE TO SWALLOW WATER AND MEDS NO PROBLEM. CAN I GET A DIET ORDER? PLEASE & THANK YOU.
--- NOTE | 2019-06-13 15:07 | NUR ---
PTS DAUGHTERS EXPRESSED CONCERN RE PTS ABILITY TO COMMUNICATE. MADE AWARE. WILL CONTINUE TO MONITOR.
[2019-06-13 18:00] VITALS: BP 178/97
--- NOTE | 2019-06-13 18:15 | NUR ---
Problems reprioritized. Patient report given, questions answered & plan of care reviewed with JUAN ORTEGA.
[2019-06-14 06:00] VITALS: BP 145/91
[2019-06-14 06:09] LABS: BASOPHILS # (AUTO) 0.1 X10'3 (0-0.2); EOSINOPHILS # (AUTO) 0.2 X10'3 (0-0.9); HEMOGLOBIN 15.3 g/dl (12.0-16.0); LYMPHOCYTES # (AUTO) 1.9 X10'3 (1.1-4.8)
[2019-06-14 06:12] LABS: BASOPHILS % (AUTO) 0.6 % (0-1); HEMATOCRIT 45.3 % (35.0-45.0); LYMPHOCYTES % (AUTO) 17.3 % (21-51); MEAN CORPUSCULAR HEMOGLOBIN 31.5 PG (27.0-31.0); MEAN CORPUSCULAR HGB CONC 33.9 g/dL (33.0-36.5); MEAN CORPUSCULAR VOLUME 93.1 FL (78-98); MEAN PLATELET VOLUME 7.7 FL (7.4-10.4); MONOCYTES # (AUTO) 1.3 X10'3 (0-0.9); MONOCYTES % (AUTO) 12.1 % (2-12); NEUTROPHILS # (AUTO) 7.3 X10'3 (1.8-7.7); PLATELET COUNT 252 X10'3 (140-440); RED BLOOD COUNT 4.87 X10'6 (4.20-5.60); RED CELL DISTRIBUTION WIDTH 16.8 % (11.5-14.5); WHITE BLOOD COUNT 10.7 X10'3 (4.5-11.0)
[2019-06-14 06:30] LABS: ALBUMIN 3.7 G/DL (3.4-5.0); ANION GAP 9 (8-16); BLOOD UREA NITROGEN 19 MG/DL (7-18); BUN/CREATININE RATIO 15.4 (6.6-38.0); CALCIUM 10.5 MG/DL (8.5-10.1); CHLORIDE 103 MMOL/L (99-107); CREATININE 1.23 MG/DL (0.40-0.90); GLUCOSE 109 MG/DL (70-104); POTASSIUM 3.7 MMOL/L (3.5-5.1); SODIUM 139 MMOL/L (135-145); TOTAL CARBON DIOXIDE 26.8 MMOL/L (24-32); eGFR 41 ML/MIN
--- NOTE | 2019-06-14 06:30 | NUR ---
Patient in room ORTHO 4009. I have received report from JORDAN Jackson and had the opportunity to ask questions and assume patient care.
--- NOTE | 2019-06-14 07:32 | NUR ---
pt confused this AM getting out of bed without calling. Found standing beside her bed by tech. Pt redirected to bed. Moved pt from 4016 to 4009B where she can be monitored by a sitter for safety.
[2019-06-14] MEDS: losartan 25mg tablet PO SCH (08:40)
[2019-06-14] MEDS: ferrous sulfate 325mg tablet PO SCH ×2 (08:40→19:18)
[2019-06-14] MEDS: atenolol 50mg tablet PO SCH (08:40)
[2019-06-14] MEDS: vitamin D (cholecalciferol) 1,000 unit tablet PO SCH (08:40)
[2019-06-14] MEDS: vitamin B comp w/Vit. C tab 1 TAB TABLET PO SCH (08:40)
[2019-06-14] MEDS: PARoxetine 20mg tablet PO SCH (08:40)
[2019-06-14] MEDS: levoTHYROXINE 25mcg tablet PO SCH (08:40)
[2019-06-14] MEDS: furosemide 20MG tablet PO SCH (08:40)
[2019-06-14] MEDS: calcium acetate 667mg (PhosLO) capsule PO SCH (08:40)
--- NOTE | 2019-06-14 10:17 | NUR ---
Bone scan negative for fx. Dr. Ferrara asked for PT to billyal pt. If she can walk then she can be d/c'd home today. PT order placed and RN paged PT for eval. Addendum: 06/14/19 at 1155 by Tiffanie Constantino RN per physical therapy pt can't walk. She is max assist to the chair and c/o left knee pain. made aware.
--- NOTE | 2019-06-14 16:30 | NUR ---
paged Dr. Ferrara: pt pulled out her IV d/t confusion. This is at least the 2nd time she's done this. No IV meds needed. ok for pt to not have an IV?
[2019-06-14 18:00] VITALS: BP 130/87
--- NOTE | 2019-06-14 18:25 | NUR ---
Received patient report from JORDAN Moreno. Assumed patient care.
--- NOTE | 2019-06-14 22:00 | NUR ---
Patient refused 2200 vitals.
[2019-06-15 06:05] LABS: LYMPHOCYTES % (AUTO) 18.8 % (21-51)
[2019-06-15 06:07] LABS: BASOPHILS % (AUTO) 0.3 % (0-1); EOSINOPHILS # (AUTO) 0.4 X10'3 (0-0.9); EOSINOPHILS % (AUTO) 3.5 % (0-6); HEMATOCRIT 42.6 % (35.0-45.0); HEMOGLOBIN 14.3 g/dl (12.0-16.0); LYMPHOCYTES # (AUTO) 2.1 X10'3 (1.1-4.8); MEAN CORPUSCULAR HEMOGLOBIN 31.2 PG (27.0-31.0); MEAN CORPUSCULAR HGB CONC 33.5 g/dL (33.0-36.5); MONOCYTES # (AUTO) 1.4 X10'3 (0-0.9); MONOCYTES % (AUTO) 12.9 % (2-12); NEUTROPHILS % (AUTO) 64.5 % (42-75); PLATELET COUNT 285 X10'3 (140-440); RED BLOOD COUNT 4.58 X10'6 (4.20-5.60); RED CELL DISTRIBUTION WIDTH 16.6 % (11.5-14.5); WHITE BLOOD COUNT 10.9 X10'3 (4.5-11.0)
[2019-06-15 06:10] VITALS: BP 116/61
--- NOTE | 2019-06-15 06:10 | NUR ---
Patient in room ORTHO 4009. I have received report from Razia ORTEGA and had the opportunity to ask questions and assume patient care.
[2019-06-15 06:15] LABS: ALBUMIN 3.5 G/DL (3.4-5.0); ANION GAP 6 (8-16); BLOOD UREA NITROGEN 29 MG/DL (7-18); BUN/CREATININE RATIO 21.2 (6.6-38.0); CALCIUM 10.1 MG/DL (8.5-10.1); CHLORIDE 103 MMOL/L (99-107); CREATININE 1.37 MG/DL (0.40-0.90); GLUCOSE 108 MG/DL (70-104); POTASSIUM 3.5 MMOL/L (3.5-5.1); SODIUM 138 MMOL/L (135-145); TOTAL CARBON DIOXIDE 29.5 MMOL/L (24-32); eGFR 37 ML/MIN
--- NOTE | 2019-06-15 06:18 | NUR ---
Patient report given, questions answered and plan of care reviewed with JORDAN Osborne.
--- NOTE | 2019-06-15 06:30 | NUR ---
Patient in room ORTHO 4009. I have received report from Razia ORTEGA and had the opportunity to ask questions and assume patient care.
[2019-06-15] MEDS: atenolol 50mg tablet PO SCH (08:07)
[2019-06-15] MEDS: ferrous sulfate 325mg tablet PO SCH (08:07)
[2019-06-15] MEDS: calcium acetate 667mg (PhosLO) capsule PO SCH (08:08)
[2019-06-15] MEDS: levoTHYROXINE 25mcg tablet PO SCH (08:08)
[2019-06-15] MEDS: vitamin D (cholecalciferol) 1,000 unit tablet PO SCH (08:09)
[2019-06-15] MEDS: furosemide 20MG tablet PO SCH (08:09)
[2019-06-15] MEDS: vitamin B comp w/Vit. C tab 1 TAB TABLET PO SCH (08:09)
[2019-06-15] MEDS: PARoxetine 20mg tablet PO SCH (08:10)
[2019-06-15] MEDS: losartan 25mg tablet PO SCH (08:10)
[2019-06-15 10:00] VITALS: BP 121/67
--- NOTE | 2019-06-15 13:45 | NUR ---
Patient discharged to [facility], report given to Shoshana at [facility]. Pictures of wounds taken and patient had her belongings in bags.
== END 2019-06-15 13:47 | DRG 554 ==
LOC: ER 11:18 → ED HOLD 15:24 → EDBEDREQ 16:34 → ORTHO 4S 18:00
PROVIDERS: ADMIT Internal Medicine; ATTEND Family Medicine
DX: M16.12 Unilateral primary osteoarthritis, left hip (principal); I48.20 Chronic atrial fibrillation, unspecified; E03.9 Hypothyroidism, unspecified; E78.5 Hyperlipidemia, unspecified; F32.9 Major depressive disorder, single episode, unspecified; I10 Essential (primary) hypertension; Z96.643 Presence of artificial hip joint, bilateral; Z96.653 Presence of artificial knee joint, bilateral; G89.29 Other chronic pain; Z60.2 Problems related to living alone; R26.9 Unspecified abnormalities of gait and mobility; I25.10 Atherosclerotic heart disease of native coronary artery without angina pectoris; L89.159 Pressure ulcer of sacral region, unspecified stage; M19.90 Unspecified osteoarthritis, unspecified site; R79.1 Abnormal coagulation profile; Z79.01 Long term (current) use of anticoagulants; Z86.73 Personal history of transient ischemic attack (TIA), and cerebral infarction without residual deficits; Z95.1 Presence of aortocoronary bypass graft
CPT/HCPCS: 36415; 73502; 73560; 73700; 78315; 80048; 80053; 84443; 85025; 85610; 87081; 93005; 97110; 97161; 97530; 99285; A9503; G0378

== ENCOUNTER 2019-12-21 16:38 | Emergency (ER) | payer MEDICARE, OTHER ==
[~2019-12-21] VITALS: Ht 154.9 cm; Wt 83.9 kg
[~2019-12-21 16:38] MED LIST changes: -ATOR20TA PO; -MULT-16 PO; +NYST1POW5 TOP; -VITC500T PO
--- NOTE | 2019-12-21 16:42 | NUR ---
Dr. Stanley who gave verbal order for CT head and neck.
--- NOTE | 2019-12-21 18:41 | NUR ---
SPOKE WITH DR Murphy IN REGARDS TO THE PATIENT'S HIGH SBP AT THIS TIME AND THAT SHE DID NOT GET HER MORNING BP MEDS AT THE SNF THAT SHE LIVES IN DUE TO HER HEARTRATE BEING IN THE 50'S AT TIMES. DR. Murphy IS FINE WITH THE HIGH SBP AND DOES NOT WANT TO GIVE ANY BP MEDS AT THIS TIME DUE TO THE HEARTRATE THAT FLUCTUATES INTO THE 50S AT TIMES.
--- NOTE | 2019-12-21 21:03 | NUR ---
CALLED [facility] TO [facility] NO ETA YET THEY HAVE ANOTHE PERSON TO BE PICKED UP BEFORE THIS PT
--- NOTE | 2019-12-21 21:30 | NUR ---
pt moved to [facility] 7
[2019-12-21 22:58] VITALS: BP 182/105
== END 2019-12-21 23:00 | disposition home or self-care (01) ==
LOC: ER 16:39
DX: S06.0X0A Concussion without loss of consciousness, initial encounter (principal); M54.6 Pain in thoracic spine; M25.552 Pain in left hip; M25.551 Pain in right hip; R51 Headache; I25.10 Atherosclerotic heart disease of native coronary artery without angina pectoris; G89.29 Other chronic pain; I10 Essential (primary) hypertension; Z86.73 Personal history of transient ischemic attack (TIA), and cerebral infarction without residual deficits; Z98.890 Other specified postprocedural states; Z60.2 Problems related to living alone; Z79.899 Other long term (current) drug therapy; W18.39XA Other fall on same level, initial encounter; Y93.89 Activity, other specified; Y92.89 Other specified places as the place of occurrence of the external cause; Y99.8 Other external cause status
CPT/HCPCS: 70450; 72125; 72128; 72192; 99285

== ENCOUNTER 2020-02-17 18:52 | Emergency (ER) | payer MEDICARE, OTHER ==
[~2020-02-17] VITALS: Ht 157.5 cm; Wt 63.5 kg
[2020-02-17 19:41] LABS: BASOPHILS # (AUTO) 0.1 X10'3 (0-0.2); BASOPHILS % (AUTO) 0.7 % (0-1); EOSINOPHILS # (AUTO) 0.4 X10'3 (0-0.9); EOSINOPHILS % (AUTO) 3.5 % (0-6); HEMATOCRIT 36.4 % (35.0-45.0); LYMPHOCYTES # (AUTO) 1.9 X10'3 (1.1-4.8); LYMPHOCYTES % (AUTO) 16.8 % (21-51); MEAN CORPUSCULAR HEMOGLOBIN 28.5 PG (27.0-31.0); MEAN CORPUSCULAR VOLUME 86.5 FL (78-98); MEAN PLATELET VOLUME 6.7 FL (7.4-10.4); MONOCYTES # (AUTO) 1.1 X10'3 (0-0.9); MONOCYTES % (AUTO) 9.4 % (2-12); NEUTROPHILS % (AUTO) 69.6 % (42-75); PLATELET COUNT 439 X10'3 (140-440); RED BLOOD COUNT 4.21 X10'6 (4.20-5.60); RED CELL DISTRIBUTION WIDTH 16.9 % (11.5-14.5); WHITE BLOOD COUNT 11.5 X10'3 (4.5-11.0)
[2020-02-17 19:54] LABS: ALANINE AMINOTRANSFERASE 10 U/L (12-78); ALBUMIN 3.4 G/DL (3.4-5.0); ALBUMIN/GLOBULIN RATIO 0.8 (1.1-1.5); ALKALINE PHOSPHATASE 98 IU/L (46-116); ANION GAP 8 (8-16); ASPARTATE AMINO TRANSFERASE 15 U/L (10-37); BILIRUBIN,TOTAL 0.6 MG/DL (0.1-1.0); BLOOD UREA NITROGEN 23 MG/DL (7-18); CALCIUM 9.4 MG/DL (8.5-10.1); CHLORIDE 101 MMOL/L (99-107); CREATININE 1.64 MG/DL (0.40-0.90); GLUCOSE 106 MG/DL (70-104); POTASSIUM 3.3 MMOL/L (3.5-5.1); SODIUM 138 MMOL/L (135-145); TOTAL CARBON DIOXIDE 29.4 MMOL/L (24-32); TOTAL PROTEIN 7.9 G/DL (6.4-8.2); eGFR 30 ML/MIN
[2020-02-17 19:54] LABS: CLARITY,URINE CLEAR (Clear); COLOR,URINE YELLOW (Yellow); GLUCOSE, URINE NEGATIVE (Neg); KETONES,URINE NEGATIVE (Neg); LEUKOCYTE ESTERASE ,URINE NEGATIVE (Neg); NITRITES, URINE NEGATIVE (Neg); OCCULT BLOOD,URINE NEGATIVE (Neg); PH,URINE 5.5 (4.8-8.0); PROTEIN,URINE NEGATIVE (Neg); UROBILINOGEN,URINE 0.2 E.U/dL (0.2-1.0)
[2020-02-17 20:01] LABS: UA COLLECTION TYPE STRAIGHT CATH
[2020-02-17 20:01] LABS: PARTIAL THROMBOPLASTIN TIME 50 SECONDS (22-32)
--- NOTE | 2020-02-17 20:58 | NUR ---
UPDATED POA DAUGHTER PAT THAT PT IS DISCHARGED AND WILL BE TRANSPORTED BACK TO FACILITY, POA AGREEABLE TO PLAN OF CARE
--- NOTE | 2020-02-17 20:59 | NUR ---
CALLED REPORT TO [facility] AND ANSWERED ALL QUESTIONS. TRANSPORTING [facility]IA [facility] BACK TO FACILITY
[2020-02-17 21:33] VITALS: BP 158/55
== END 2020-02-17 21:35 | disposition home or self-care (01) ==
LOC: ER 18:53
DX: S09.90XA Unspecified injury of head, initial encounter (principal); S16.1XXA Strain of muscle, fascia and tendon at neck level, initial encounter; S80.12XA Contusion of left lower leg, initial encounter; I25.10 Atherosclerotic heart disease of native coronary artery without angina pectoris; I10 Essential (primary) hypertension; G89.29 Other chronic pain; Z86.73 Personal history of transient ischemic attack (TIA), and cerebral infarction without residual deficits; Z95.1 Presence of aortocoronary bypass graft; Z98.890 Other specified postprocedural states; Z79.01 Long term (current) use of anticoagulants; Z79.899 Other long term (current) drug therapy; W19.XXXA Unspecified fall, initial encounter; Y93.89 Activity, other specified; Y92.89 Other specified places as the place of occurrence of the external cause; Y99.8 Other external cause status
CPT/HCPCS: 36415; 70450; 72125; 73590; 80053; 81003; 85025; 85610; 85730; 93005; 99285

== ENCOUNTER 2020-04-18 13:48 | Emergency (ER) | payer MEDICARE, OTHER ==
[~2020-04-18] VITALS: Ht 167.6 cm; Wt 63.4 kg
[2020-04-18 15:41] VITALS: BP 137/61
== END 2020-04-18 16:15 | disposition home or self-care (01) ==
LOC: ER 13:49
DX: R79.1 Abnormal coagulation profile (principal); F03.90 Unspecified dementia, unspecified severity, without behavioral disturbance, psychotic disturbance, mood disturbance, and anxiety; I25.10 Atherosclerotic heart disease of native coronary artery without angina pectoris; I10 Essential (primary) hypertension; G89.29 Other chronic pain; Z95.1 Presence of aortocoronary bypass graft; Z98.890 Other specified postprocedural states; Z79.899 Other long term (current) drug therapy; Z79.01 Long term (current) use of anticoagulants
CPT/HCPCS: 99283